=== PATIENT | female | born 1950 | race Caucasian/White ===

== ENCOUNTER 2017-04-14 16:28 | Emergency (ER) | payer MEDICARE ==
[~2017-04-14] VITALS: Ht 170.2 cm; Wt 84.1 kg
[2017-04-14 16:29] VITALS: PULSE 60; RESP 15; O2SAT 98
[2017-04-14 16:57] LABS: BASOPHILS % (AUTO) 0.5 % (0-3); EOSINOPHILS % (AUTO) 1.8 % (0-5); MONOCYTES % (AUTO) 13.5 % (4-12); Mean Corpuscular Hemoglobin 32.8 pg (27.0-35.0); Mean Corpuscular Volume 95.2 fL (81-100); NEUTROPHILS % (AUTO) 51.4 % (40-74); Platelet Count 311 bil/L (150-400)
[2017-04-14 17:09] LABS: TROPONIN T < 0.010 ug/L (0.0-0.011)
[2017-04-14 17:16] LABS: Magnesium 2.3 mg/dL (1.6-2.6)
--- NOTE | 2017-04-14 17:23 | DRSVH ---
PROCEDURE: X-RAY CHEST ONE VIEW, PORTABLE ([id number]) INDICATIONS: CP TECHNIQUE: One view of the chest was acquired. COMPARISON: None. FINDINGS: Surgical changes and devices: None. Lungs and pleura: No pleural effusions or pneumothorax. Lungs are clear. Mediastinum: Mediastinal contours appear normal. Heart size is normal. Bones and chest wall: No suspicious bony lesions. Overlying soft tissues appear unremarkable. IMPRESSION: No radiographic evidence of acute cardiopulmonary pathology. Dictated by: Tor Johns M.D. on 04/14/2017 at 17:21 Approved by: Tor Johns M.D. on 04/14/2017 at 17:22
[2017-04-14] MEDS ORDERED: LidocaineVisc 2%:Antacid 1:1 10 mL Syringe PO ONE (17:45)
--- NOTE | 2017-04-14 17:45 | ED.REPORT ---
HPI-Chest Pain 40 and Over Date of Service Apr 14, 2017 ED Provider: Jose Peraza DO A 66 year old female with a history of hyperlipidemia, smoking, former estradiol use, depression, vertigo, COPD and Parkinson's disease with involuntary movement dystonia is brought to the ED via EMS complaining of chest pain. The pain radiates into her left arm and jaw. The pt was seen by her PCP at 16:00 for an evaluation of Parkinson's medications when the chest pain began. This episode lasted for several minutes then resolved spontaneously. She experienced another episode 1 hour and 45 minutes later. The pt denies any history of GA. She had a negative stress test in 2012. In the ED, the pt initially requests to leave immediately without further testing but has since agreed to stay. Nursing Notes Stated Complaint: CHEST PAIN Chief Complaint: Chest Pain Nursing Notes Reviewed: Yes Allergies: Coded Allergies: Sulfa (Sulfonamide Antibiotics) (Verified Allergy, Severe, Rash, 04/14/17) duloxetine (Verified Adverse Reaction, Severe, Extrapyramidal Symptoms, 04/14/17) General Time Seen by MD: 17:17 Chief Complaint Chest pain Hx Obtained From: Patient, EMS Arrived By: Ambulance Sudden in Onset?: Yes Onset Occurred: 1 - 4 hours ago Symptom Duration: Intermittent Recent Healthcare: Recent doctor visit Similar Sx Previous: No Past Medical History Past Medical History hyperlipidemia former estradiol use depression vertigo COPD Parkinson's disease with involuntary movement dystonia Past Surgical History breast biopsy Smoking History Current Every Day Smoker ("in the process of quitting") Ambulatory Status Independent Review of Systems Review of Systems Note: jaw pain radiating from chest Respiratory: Denies: Non-productive cough, Shortness of breath Cardiovascular: Reports: Chest pain GI: Denies: Abdominal pain Musculoskeletal: Reports: Extremity pain, Denies: Neck pain Skin: Denies Rash Complete sys rev & neg: except as marked. Physical Exam Initial Vital Signs Vital Signs (First) Date Time Temp Pulse Resp B/P Pulse Ox O2 Delivery O2 Flow Rate FiO2 04/14/17 16:29 36.3 60 15 98 Room Air 04/14/17 18:32 140/51 Initial VS: Reviewed General/Constitutional: Awake, Alert Respiratory / Chest: Atraumatic, Breath sounds NL, Breath sounds = bilat, No respiratory distress Cardiovascular: Heart rate NL, Regular rhythm, Heart sounds NL Abdomen: Atraumatic, Soft, Non-tender Neck: Atraumatic, Supple, Full range of motion Back: Atraumatic, Full range of motion Lower Extremity / Pelvis / MS: Atraumatic, Full range of motion Skin: Atraumatic, Color NL, No rash, Warm, Dry Neurologic: Oriented X3, Speech NL, No motor deficits, No sensory deficits Psychiatric: Mood NL odd affect Head / Eyes: Atraumatic, Normocephalic, PERRL, EOMI ENT: Atraumatic, Airway patent, Mucous membranes moist Upper Extremity / MS: Atraumatic, Full range of motion Interpretation & Diagnostics Lab Results Interpretation Result Diagram: 04/14/17 1650 04/14/17 1650 Test 04/14/17 16:39 04/14/17 16:50 04/14/17 16:51 Hold Purple Top Tube Received (Received) D-Dimer < 0.50mg/L FEU (<0.50) Hold Blue Top Tube Received (Received) Hold Red Top Tube Received (Received) Hold [place] Top Tube Received (Received) White Blood Count 6.2th/mm3 (3.8-10.1) Red Blood Count 4.57mil/mm3 (3.90-5.20) Hemoglobin 15.0g/dL (12.0-15.6) Hematocrit 43.5% (35.0-46.0) Mean Corpuscular Volume 95.2fL (81-100) Mean Corpuscular Hemoglobin 32.8pg (27.0-35.0) Mean Corpuscular Hemoglobin Concent 34.5% (32.0-37.0) Red Cell Distribution Width 14.5% (12.3-15.4) Platelet Count 311bil/L (150-400) Neutrophils (%) (Auto) 51.4% (40-74) Lymphocytes (%) (Auto) 32.6% (14-46) Monocytes (%) (Auto) 13.5% (4-12) Eosinophils (%) (Auto) 1.8% (0-5) Basophils (%) (Auto) 0.5% (0-3) Sodium Level 142mEq/L (134-144) Potassium Level 4.1mEq/L (3.5-5.2) Chloride Level 103mEq/L (97-108) Carbon Dioxide Level 21mmol/L (18-29) Blood Urea Nitrogen 20mg/dL (8-27) Creatinine 0.92mg/dL (0.57-1.00) Estimat Glomerular Filtration Rate 87mL/min (>59) Glucose Level 99mg/dL (60-99) Calcium Level 9.9mg/dL (8.5-10.1) Magnesium Level 2.3mg/dL (1.6-2.6) Total Bilirubin 0.3mg/dL (0.0-1.2) Aspartate Amino Transf (AST/SGOT) 18U/L (0-50) Alanine Aminotransferase (ALT/SGPT) 13U/L (0-32) Alkaline Phosphatase 65U/L (25-165) Troponin T < 0.010ug/L (0.0-0.011) Total Protein 7.2g/dL (6.4-8.4) Albumin 3.9g/dL (3.4-5.0) Hold [place] Top Tube Received (Received) ECG Interpretation ECG Interpretation: normal sinus rhythm with a rate of 60 probable anteroseptal infarct, old Time: 16:51 Interpreted by: ED physician X-Ray Chest Interpretation Chest Xray Interpretation: IMPRESSION: No radiographic evidence of acute cardiopulmonary pathology. Dictated by: Tor Johns M.D. on 04/14/2017 at 17:21 Approved by: Tor Johns M.D. on 04/14/2017 at 17:22 Interpretation / Wet Read by: Interpret - Radiologist Re-Eval/Medical Decision Med Decision/Clinical Course Patient arrives after having 2 spontaneous episodes of chest pain. Given her past medical history and age and comorbidities she is moderate risky. I did strongly encourage her to be admitted. She refused any further treatment and explicitly declined hospitalization for further provocative testing. She is of sound mind and has decisional capacity to do so. Her troponin is negative, her d-dimer is negative her EKG is reassuring. Her symptoms have completely resolved. She persistently refuses admission, however agrees to follow-up very closely with her primary care doctor for further exam and evaluation. She verbalizes that if she develops recurrent chest pain she will either call 911 or go directly to the closest emergency department. Return and follow-up precautions given Source of Hx: Old records Time of Eval: 18:21 Patient Status: Condition improved Re-Evaluation/Progress Note: Pt rechecked, who is pain free. The diagnosis and plan for discharge are discussed. The pt understands and agrees with the plan. All questions are addressed at this time. Counseled Regarding: Diagnosis, Lab results, Need for follow-up, When/why to return to ED Discharge & Departure Primary Impression: Chest pain Chest pain type: unspecified Qualified Code: R07.9 - Chest pain, unspecified Disposition: Home Discharge Condition All VS Reviewed: Yes Condition: Stable Patient Instructions: Angina (ED) Additional Instructions: As of right now, your labs are reassuring. If you develop recurrent chest pain you should go immediately to the closest emergency department. Call your doctor in the morning for close follow-up and further evaluation of your heart. The sure to take aspirin 81 mg daily. Return to the ER if you develop recurrent chest pain or other concerns. Referrals: Iris Gagnon MD (PCP) Davide Patel MD Scribe Attestation Portions of this note were transcribed by Cj Mohan. I, Dr. Peraza personally performed the history, physical exam and medical decision-making; I reviewed and confirmed the accuracy of the information in the transcribed note. copies to: Davide Patel MD; Iris Gagnon MD, Timothy S DO Apr 14, 2017 17:45 CJ MOHAN Apr 14, 2017 17:53
[2017-04-14 18:32] VITALS: BP 140/51; PULSE 59; RESP 16; O2SAT 97
== END 2017-04-14 18:34 | disposition home or self-care (01) ==
LOC: SED 16:28 → EDUNIT# 16:28 → EDBD 16:28 → SED 18:34
DX: R07.9 Chest pain, unspecified (principal); J44.9 Chronic obstructive pulmonary disease, unspecified; E78.5 Hyperlipidemia, unspecified; F32.9 Major depressive disorder, single episode, unspecified; G20 Parkinson's disease; F17.200 Nicotine dependence, unspecified, uncomplicated; Z98.890 Other specified postprocedural states; Z88.2 Allergy status to sulfonamides; Z88.8 Allergy status to other drugs, medicaments and biological substances